=== PATIENT | female | born 1990 | race Caucasian/White ===

== ENCOUNTER 2016-12-14 10:08 | Emergency (ER) | payer SELFPAY ==
[~2016-12-14] VITALS: Ht 157.5 cm; Wt 116.5 kg
[2016-12-14 10:09] VITALS: Ht 157.5 cm; Wt 116.5 kg
[2016-12-14] MEDS ORDERED: ALBUTEROL 0.5% (NEB) 2.5 MG/0.5 ML AMP INH STA (10:34)
[2016-12-14] MEDS ORDERED: IPRATROPIUM (NEB) 0.5 MG/2.5 ML AMP INH STA (10:34)
[2016-12-14] MEDS ORDERED: predniSONE 20 MG TAB PO STA (10:34)
--- NOTE | 2016-12-14 11:42 | ERD ---
ER Documentation Chief Complaint Date/Time DATE: 12/14/16 TIME: 11:40 Chief Complaint BIB SELF C/O SHORTNESS OF BREATH SINCE LAST NIGHT. HX OF ASTHMA HPI This 26-year-old female who presents to the emergency department today complaining of shortness of breath since last night. Patient states he has a history of asthma. States that she used to take medication when she lived in [facility] but has not taken anything for the past 4 months. States she does not have a primary care doctor. Denies any fevers or chills, chest pain. ROS All systems reviewed and are negative except as per history of present illness. Medications Home Meds Active Scripts Albuterol Sulfate* (Albuterol Sulfate* Neb) 0.083%-3 Ml Neb, 2.5 MG NEB Q4 Y for SHORTNESS OF BREATH, #30 EA Prov:JAMES CHATTERJEE PA-C 12/14/16 Prednisone* (Prednisone*) 20 Mg Tab, 40 MG PO DAILY for 4 Days, TAB Prov:JAMES CHATTERJEE PA-C 12/14/16 Albuterol Sulfate* (Ventolin HFA*) 18 Gm Hfa.aer.ad, 2 PUFF INHALATION Q4H, #1 INHALER Prov:JAMES CHATTERJEE PA-C 12/14/16 Allergies Allergies: Coded Allergies: No Known Allergy (Unverified , 12/14/16) Physical Exam Vitals Vital Signs Date Time Temp Pulse Resp B/P Pulse Ox O2 Delivery O2 Flow Rate FiO2 12/14/16 10:52 90 20 96 21 12/14/16 10:09 98.7 99 20 137/76 100 Physical Exam Const: Obese, no acute distress Head: Atraumatic Eyes: Normal Conjunctiva ENT: Normal External Ears, Nose and Mouth. Neck: Full range of motion..~ No meningismus. Resp: Diffuse wheezing bilaterally in all lung medina. Cardio: Regular rate and rhythm, no murmurs Skin: No petechiae or rashes Back: No midline or flank tenderness Ext: No cyanosis, or edema Neur: Awake and alert Psych: Normal Mood and Affect Results 24 hrs Current Medications Medications (Trade) Dose Ordered Sig/Pita Route PRN Reason Start Time Stop Time Status Last Admin Dose Admin Albuterol (Proventil 0.5% (Neb)) 10 mg ONCE STAT INH 12/14/16 10:34 12/14/16 10:36 DC 12/14/16 10:48 Ipratropium [place] (Atrovent 0.02% (Neb)) 2 mg ONCE STAT INH 12/14/16 10:34 12/14/16 10:36 DC 12/14/16 10:48 Prednisone (Prednisone) 60 mg ONCE STAT PO 12/14/16 10:34 12/14/16 10:36 DC 12/14/16 11:40 Procedures/MDM This a 26-year-old female presents to the emergency department today complaining of shortness of breath since last night. Patient has a history of asthma. On physical exam patient has diffuse wheezing bilaterally in all lung medina. She is afebrile and otherwise well-appearing. Her oxygen saturation intake was 100%. She is not tachycardic. Do not feel that she requires a chest x-ray at this time. Low suspicion for pneumonia, PE, abscess, pleural effusion, pneumothorax. Patient was given a 1 hour continuous breathing treatment here in the emergency department addition of prednisone her wheezing had completely resolved and reported feeling symptomatically better.. Patient was given a prescription for pro-air inhaler, nebulizers and a short course of prednisone for home. Patient symptoms at this time is consistent with acute asthma exacerbation. At this time the patient is stable for discharge and outpatient management. Patient should follow up with their PCP in the next 1-2 days. She is given a list of community resources they may return to the emergency department sooner for any persistent or worsening of symptoms. Patient understood and agreed with the plan. Departure Diagnosis: Primary Impression: Asthma exacerbation Condition: JAMES Mccray PA-C Dec 14, 2016 11:42
[2016-12-14] MEDS ORDERED: PRED20TA PO (12:01)
[2016-12-14] MEDS ORDERED: ALBU18HF INHALATION (12:01)
[2016-12-14] MEDS ORDERED: ALBU2.5V3 NEB (12:01)
[2016-12-14 12:22] VITALS: BP 127/73; PULSE 92; RESP 18; TEMP 98.5
== END 2016-12-14 12:25 | disposition home or self-care (01) ==
LOC: FTE 10:08
DX: J45.901 Unspecified asthma with (acute) exacerbation (principal)
CPT/HCPCS: 94644; J7512

== ENCOUNTER 2017-11-23 00:31 | Emergency (ER) | END 2017-11-23 05:10 | disposition home or self-care (01) ==

== ENCOUNTER 2018-02-18 03:31 | Emergency (ER) | END 2018-02-18 05:42 | disposition home or self-care (01) ==

== ENCOUNTER 2018-04-09 00:06 | Emergency (ER) | END 2018-04-09 03:52 | disposition home or self-care (01) ==

== ENCOUNTER 2018-05-20 13:10 | Emergency (ER) | END 2018-05-20 15:46 | disposition home or self-care (01) ==

== ENCOUNTER 2018-08-12 13:51 | Emergency (ER) | payer MEDICAID ==
[~2018-08-12] VITALS: Ht 162.6 cm; Wt 112.0 kg
[~2018-08-12 13:51] MED LIST: ALBU18HF INHALATION; ALBU2.5V3 NEB; ALBU8.5H8 INH; CETI10CA PO; FLOV44 INHALATION; GUAI120S26 PO; IBUP-1542 PO; NITR-58 PO; PRED20TA PO
[2018-08-12 13:57] VITALS: Ht 162.6 cm; Wt 112.0 kg
[2018-08-12] MEDS ORDERED: PRED20TA PO (15:36)
[2018-08-12] MEDS ORDERED: ALBU18HF INHALATION (15:36)
[2018-08-12] MEDS ORDERED: BENZ200C68 PO (15:36)
--- NOTE | 2018-08-12 17:43 | ERD ---
ER Documentation Chief Complaint Chief Complaint COUGH , CHEST CONGESTION X 4 DAYS HPI 27-year-old female presenting to the emergency department complaining of cough and mild shortness of breath for the past 4 days. Symptoms are intermittent. Patient is additionally requesting refill of her asthma medication as she ran out. Symptoms are overall moderate. She denies any other symptoms at this time. ROS All systems reviewed and are negative except as per history of present illness. Medications Home Meds Active Scripts Prednisone* (Prednisone*) 20 Mg Tab, 40 MG PO DAILY for 4 Days, TAB Prov:ADITYA LOCO PA-C 08/12/18 Albuterol Sulfate* (Ventolin HFA*) 18 Gm Hfa.aer.ad, 2 PUFF INHALATION Q4H, #1 INHALER Prov:ADITYA LOCO PA-C 08/12/18 Benzonatate* (Benzonatate*) 200 Mg Capsule, 200 MG PO TID PRN for COUGH, #15 CAP Prov:ADITYA LOCO PA-C 08/12/18 Nitrofurantoin Monohyd Macrocr* (Macrobid*) 100 Mg Capsr, 100 MG PO BID for 7 Days, CAP Prov:ADELAIDE MARESC 05/20/18 Fluticasone Propionate* (Flovent* HFA 44) 10.6 Gm Inha, 1 PUFF INHALATION BID for 7 Days, #1 INHALER Prov:ADELAIDE MARES-C 05/20/18 Albuterol Sulfate* (Proair HFA*) 8.5 Gm Hfa.aer.ad, 2 PUFF INH Q4H PRN for WHEEZING AND SOB, #1 INHALER Prov:ADELAIDE MARESC 05/20/18 Albuterol Sulfate* (Ventolin HFA*) 18 Gm Hfa.aer.ad, 2 PUFF INHALATION Q4H, #1 INHALER Prov:LOTTIE JOHN MD 04/09/18 Ibuprofen* (Motrin*) 600 Mg Tab, 600 MG PO Q6H PRN for PAIN AND OR ELEVATED TEMP, #30 TAB Prov:LOTTIE JOHN MD 04/09/18 Albuterol Sulfate* (Proair HFA*) 8.5 Gm Hfa.aer.ad, 2 PUFF INH Q4, #1 INHALER Prov:NORI RICHEY PA-C 02/18/18 Ibuprofen* (Motrin*) 600 Mg Tab, 600 MG PO Q6, #30 TAB Prov:NORI RICHEY PA-C 02/18/18 Prednisone* (Prednisone*) 20 Mg Tab, 60 MG PO DAILY for 5 Days, TAB Prov:PATRICIA GUARDADO NP 11/23/17 Ibuprofen* (Motrin*) 600 Mg Tab, 600 MG PO Q6H PRN for PAIN AND OR ELEVATED TEMP, #30 TAB Prov:PATRICIA GUARDADO J2EE ARCHITECT 11/23/17 Cetirizine Hcl* (Zyrtec*) 10 Mg Capsule, 10 MG PO DAILY, #30 TAB.CHEW Prov:PATRICIA GUARDADO NP 11/23/17 Vnosnowhvoi-K-Zrvihkmfwr Hb* (Guaifenesin* DM Syrup) 120 Ml Syrup, 10 ML PO Q4H PRN for COUGH, #120 ML Prov:PATRICIA GUARDADO NP 11/23/17 Albuterol Sulfate* (Proair HFA*) 8.5 Gm Hfa.aer.ad, 2 PUFF INH Q4H PRN for WHEEZING AND SOB, #1 INHALER Prov:PATRICIA GUARDADO NP 11/23/17 Albuterol Sulfate* (Albuterol Sulfate* Neb) 0.083%-3 Ml Neb, 2.5 MG NEB Q4 PRN for SHORTNESS OF BREATH, #30 EA Prov:JAMES CHATTERJEE PA-C 12/14/16 Prednisone* (Prednisone*) 20 Mg Tab, 40 MG PO DAILY for 4 Days, TAB Prov:JAMES CHATTERJEE PA-C 12/14/16 Albuterol Sulfate* (Ventolin HFA*) 18 Gm Hfa.aer.ad, 2 PUFF INHALATION Q4H, #1 INHALER Prov:JAMES CHATTERJEE PA-C 12/14/16 Allergies Allergies: Coded Allergies: No Known Allergy (Unverified , 02/18/18) PMhx/Soc History of Surgery: Yes ( 2007) Anesthesia Reaction: No Hx Neurological Disorder: No Hx Respiratory Disorders: Yes (asthma) Hx Cardiac Disorders: No Hx Psychiatric Problems: No Hx Miscellaneous Medical Probl: No Hx Alcohol Use: Yes (occasional) Hx Substance Use: No Hx Tobacco Use: No Smoking Status: Never smoker FmHx Family History: No diabetes Physical Exam Vitals Vital Signs Date Temp Pulse Resp B/P (MAP) Pulse Ox O2 O2 Flow FiO2 Time Delivery Rate 08/12/18 98.2 90 18 143/78 97 13:57 (99) Physical Exam Const: No acute distress Head: Atraumatic Eyes: Normal Conjunctiva ENT: Normal External Ears, Nose and Mouth. Neck: Full range of motion. No meningismus. Resp: Clear to auscultation bilaterally Cardio: Regular rate and rhythm, no murmurs Skin: No petechiae or rashes Back: No midline or flank tenderness Ext: No cyanosis, or edema Neur: Awake and alert Psych: Normal Mood and Affect Procedures/MDM 27 old female resenting to the emergency department complaining of acute asthma exacerbation. The patient is not in respiratory distress. She was offered breathing treatment in the department however she declined. Patient stable and appropriate for discharge and further treatment as an outpatient. She will be given prescription for Ventolin, prednisone, benzonatate. The patient agreed with the diagnosis, plan, need for follow-up, return precautions. Patient's respiratory status has stabilized while in the department and is appropriate for outpatient work up. Exam and work up not consistent w/ impending respiratory failure or cardiovascular collapse. Patient's blood pressure was elevated (>120/80) but appears stable without evidence of hypertension emergency or urgency. The patient is to follow-up and pursue outpatient monitoring and therapy with their primary care physician within 1 week and return immediately if they have any new, worsening, or concerning symptoms. Departure Diagnosis: Primary Impression: Asthma with acute exacerbation Asthma severity: unspecified severity Asthma persistence: unspecified Qualified Codes: J45.901 - Unspecified asthma with (acute) exacerbation Condition: Fair Patient Instructions: Asthma, Acute (Adult) [facility] Usted se hutchins hecho un examen mdico de control que le indica que no est en jenifer condicin que requiera tratamiento urgente en el Departamento de Emergencia. Un estudio ms profundo y el tratamiento de alcantar condicin pueden esperar sin ningn riesgo hasta que usted sea atendida/o en el consultorio de alcantar mdico o jenifer clnica. Es responsabilidad suya arreglar jenifer mira para el seguimiento del kapil. MANEJO DE CONDICIONES NO URGENTES EN EL FUTURO 1) Si usted tiene un mdico de atencin primaria: Usted debera llamar a alcantar mdico de atencin primaria antes de venir al departamento de emergencia. Despus de las horas de consultorio, alcantar doctor o alcantar asociado/a est disponible por telfono. El mdico o enfermero de jewel en el servicio telefnico puede asesorarle por vira medio para atender el problema, o kapil contrario se puede programar jenifer mira. 2) Si usted no tiene un mdico de atencin primaria: Llame al mdico o clnica de referencia que aparece abajo tifafni las horas de consultorio para hacer jenifer mira para que le vean. CLINICAS: [place] [id number] [phone] [facility] [phone] [facility]. [facility] [phone] [facility]. [place] [id number] [phone] [facility]. [place] [id number] [phone] [facility]. [phone] [address] Additional Instructions: Llame al doctor MAANA y elaine jenifer MIRA PARA DENTRO DE 1-2 PEREZ.Dgale a la secretaria que nosotros le instruimos hacer esta mira.Avise o llame si alcantar condicin se empeora antes de la mira. Regresa aqui si peor o no mejor. ADITYA LOCO PA-C Aug 12, 2018 17:43
== END 2018-08-12 16:06 | disposition home or self-care (01) ==
LOC: FTE 13:51
DX: J45.901 Unspecified asthma with (acute) exacerbation (principal)
CPT/HCPCS: 99283